=== PATIENT | female | born 1935 | race Caucasian/White ===

== ENCOUNTER 2017-02-25 10:40 | Outpatient (CLI) | payer MEDICARE, BC ==
[2015-11-08 17:32] VITALS: O2SAT 93
== END 2017-02-25 10:41 | disposition home or self-care (01) | DRG 556 ==
LOC: CONVCARE 10:40
PROVIDERS: ATTEND Orthopaedic Surgery
DX: M25.512 Pain in left shoulder (principal); Z96.612 Presence of left artificial shoulder joint
CPT/HCPCS: 73030

== ENCOUNTER 2017-03-18 11:33 | Outpatient (CLI) | payer MEDICARE, BC ==
[2015-11-08 17:32] VITALS: O2SAT 93
== END 2017-03-18 11:34 | disposition home or self-care (01) | DRG 561 ==
LOC: CONVCARE 11:33
PROVIDERS: ATTEND Orthopaedic Surgery
DX: S42.132D Displaced fracture of coracoid process, left shoulder, subsequent encounter for fracture with routine healing (principal); Z96.612 Presence of left artificial shoulder joint
CPT/HCPCS: 73030